=== PATIENT | female | born 1935 | race Caucasian/White ===

== ENCOUNTER 2017-09-01 08:21 | Day surgery (SDC) | payer MEDICARE ==
[~2017-09-01] VITALS: Ht 167.6 cm; Wt 77.0 kg
[~2017-09-01 08:21] MED LIST: LEVO100T5 PO; LISI5TAB7 PO; MULT-717 PO; OMEG-14 PO; VIT1TABL32 PO
[2017-09-01] MEDS ORDERED: LACTATED RINGERS 1,000 ML IV SCH (08:52)
[2017-09-01 09:10] VITALS: BP 158/83
[2017-09-01] MEDS ORDERED: MIDAZOLAM 1 MG/ML, 2ML ONE (10:33)
[2017-09-01] MEDS ORDERED: FENTANYL PF 100 MCG/2ML ONE ×2 (10:33→12:34)
[2017-09-01] MEDS ORDERED: DEXAMETHASONE 4 MG/ML, 1ML ONE (11:26)
[2017-09-01] MEDS ORDERED: CEFAZOLIN 1,000 MG ONE (11:26)
[2017-09-01] MEDS ORDERED: ONDANSETRON 2MG/ML, 2ML ONE (11:26)
[2017-09-01] MEDS ORDERED: PROPOFOL 10 MG/ML, 20ML ONE (11:26)
[2017-09-01] MEDS ORDERED: MITOMYCIN 40 MG in STERILE WATER 20 ML INTVESIC ONE (11:30)
[2017-09-01] MEDS ORDERED: HYDROcodone/APAP 7.5-325MG/15ML UDC PO PRN (12:30)
[2017-09-01] MEDS ORDERED: ACETAMINOPHEN 325 MG TABLET PO PRN (12:30)
[2017-09-01] MEDS ORDERED: PROMETHAZINE 25 MG/ML, 1ML IV PRN (12:30)
[2017-09-01] MEDS ORDERED: MIDAZOLAM 1 MG/ML, 2ML IV PRN (12:30)
[2017-09-01] MEDS ORDERED: HYDROmorphone 1 MG/ML, 1ML IV PRN (12:30)
[2017-09-01] MEDS ORDERED: LABETALOL 5MG/ML, 20ML IV PRN (12:30)
[2017-09-01] MEDS ORDERED: ALBUTEROL SULFATE 2.5 MG/3 ML NPPB PRN (12:30)
[2017-09-01] MEDS ORDERED: EPHEDRINE 50 MG/ML, 1ML IVPush PRN (12:30)
[2017-09-01] MEDS ORDERED: MEPERIDINE/PF 25MG/0.5ML IVPush PRN (12:30)
[2017-09-01] MEDS ORDERED: ONDANSETRON ODT 8 MG PO PRN (12:30)
[2017-09-01] MEDS ORDERED: hydrALAzine 20 MG/ML, 1ML IV PRN (12:30)
[2017-09-01] MEDS ORDERED: OXYcodone 5 MG/5 ML ORAL.SOL UDC ONE (12:34)
[2017-09-01] MEDS ORDERED: ACETAMINOPHEN 650 MG/20.3 ML UDC ONE (12:34)
[2017-09-01] MEDS: FENTANYL PF 100 MCG/2ML IV PRN ×2 (12:35→12:51)
[2017-09-01] MEDS: OXYcodone 5 MG/5 ML ORAL.SOL UDC PO PRN ×2 (12:37→13:42)
== END 2017-09-01 16:13 | disposition home or self-care (01) ==
LOC: OR 08:21
PROVIDERS: ATTEND Urology
DX: C67.9 Malignant neoplasm of bladder, unspecified (principal); I10 Essential (primary) hypertension; E78.00 Pure hypercholesterolemia, unspecified; E03.9 Hypothyroidism, unspecified; Z90.710 Acquired absence of both cervix and uterus; Z98.890 Other specified postprocedural states; Z72.89 Other problems related to lifestyle
CPT/HCPCS: 52240; 88305; J0690; J1100; J2250; J2405; J2704; J3010; J9280

== ENCOUNTER 2017-09-04 15:16 | Inpatient (IN) | payer MEDICARE ==
[~2017-09-04] VITALS: Ht 167.6 cm; Wt 81.1 kg
[2017-09-04 16:14] LABS: BASOPHILS # (AUTO) 0.03 x10^3/uL (0-0.1); BASOPHILS % (AUTO) 0 % (0-1); EOSINOPHILS # (AUTO) 0.09 x10^3/uL (0-0.4); EOSINOPHILS % (AUTO) 1 % (1-7); LYMPHOCYTES # (AUTO) 1.49 x10^3/uL (1-3.4); LYMPHOCYTES % (AUTO) 16 % (22-44); MD NO; MEAN CORPUSCULAR HEMOGLOBIN 29.6 pg (27.0-34.8); MEAN CORPUSCULAR HGB CONC 33.2 g/dL (32.4-35.8); MEAN CORPUSCULAR VOLUME 89.3 fL (80-100); MEAN PLATELET VOLUME 8.3 fL (7.4-10.4); MONOCYTES # (AUTO) 0.83 x10^3/uL (0.2-0.8); MONOCYTES % (AUTO) 9 % (2-9); NEUTROPHILS # (AUTO) 6.88 x10^3/uL (1.8-6.8); NEUTROPHILS % (AUTO) 74 % (42-75); PLATELET COUNT 231 x10^3/uL (130-400); RED BLOOD COUNT 4.42 x10^6/uL (3.82-5.3); RED CELL DISTRIBUTION WIDTH 14.1 % (9.6-15.2)
[2017-09-04 16:26] LABS: ALANINE AMINOTRANSFERASE 19 U/L (12-78); ALBUMIN 3.9 g/dL (3.4-5.0); ANION GAP 7 mmol/L (5-15); CALCIUM 9.4 mg/dL (8.5-10.1); CHLORIDE 103 mmol/L (98-107); CREATININE 1.17 mg/dL (0.55-1.02)
[2017-09-04 16:30] LABS: ALKALINE PHOSPHATASE 83 U/L (45-117); BILIRUBIN,TOTAL 0.4 mg/dL (0.2-1.0); TOTAL PROTEIN 7.6 g/dL (6.4-8.2); TROPONIN I 0.087 ng/mL (0.000-0.045)
[2017-09-04] MEDS ORDERED: ASPI-496 PO (18:59)
[2017-09-04] MEDS ORDERED: POLYETHYLENE GLYCOL 17 GM PACKET PO PRN (19:30)
[2017-09-04] MEDS ORDERED: NITROGLYCERIN 0.4 MG BOTTLE (25 TABS) SL PRN (19:30)
[2017-09-04] MEDS ORDERED: BISACODYL 10 MG SUPP PR PRN (19:30)
[2017-09-04] MEDS ORDERED: morphine SULFATE 10 MG/ML, 1ML IVPush PRN (19:30)
[2017-09-04] MEDS ORDERED: ONDANSETRON 2MG/ML, 2ML IVPush PRN (19:30)
[2017-09-04] MEDS: ACETAMINOPHEN 325 MG TABLET PO PRN (22:16)
[2017-09-04] MEDS: HEPARIN 5,000 UNITS/ML, 1ML SQ SCH (22:17)
[2017-09-04] MEDS: SODIUM CHLORIDE FLUSH 10ML SYR IVF SCH (22:17)
[2017-09-04 22:36] LABS: TROPONIN I 0.066 ng/mL (0.000-0.045)
[2017-09-05 00:04] VITALS: BP 151/81
[2017-09-05 01:27] VITALS: BP 119/70
[2017-09-05 04:32] LABS: BASOPHILS # (AUTO) 0.03 x10^3/uL (0-0.1); BASOPHILS % (AUTO) 0 % (0-1); EOSINOPHILS # (AUTO) 0.17 x10^3/uL (0-0.4); EOSINOPHILS % (AUTO) 2 % (1-7); LYMPHOCYTES # (AUTO) 1.27 x10^3/uL (1-3.4); LYMPHOCYTES % (AUTO) 17 % (22-44); MD NO; MEAN CORPUSCULAR HEMOGLOBIN 29.6 pg (27.0-34.8); MEAN CORPUSCULAR HGB CONC 33.4 g/dL (32.4-35.8); MEAN CORPUSCULAR VOLUME 88.7 fL (80-100); MEAN PLATELET VOLUME 8.5 fL (7.4-10.4); MONOCYTES # (AUTO) 0.66 x10^3/uL (0.2-0.8); MONOCYTES % (AUTO) 9 % (2-9); NEUTROPHILS # (AUTO) 5.45 x10^3/uL (1.8-6.8); NEUTROPHILS % (AUTO) 72 % (42-75); PLATELET COUNT 195 x10^3/uL (130-400); RED BLOOD COUNT 3.92 x10^6/uL (3.82-5.3); RED CELL DISTRIBUTION WIDTH 14.2 % (9.6-15.2)
[2017-09-05 04:43] LABS: ALBUMIN 3.1 g/dL (3.4-5.0); ANION GAP 4 mmol/L (5-15); CALCIUM 8.5 mg/dL (8.5-10.1); CHLORIDE 105 mmol/L (98-107)
[2017-09-05 04:49] LABS: ALANINE AMINOTRANSFERASE 16 U/L (12-78); ALKALINE PHOSPHATASE 66 U/L (45-117); BILIRUBIN,TOTAL 0.6 mg/dL (0.2-1.0); CHOL/HDL RATIO 1.8; CHOLESTEROL, TOTAL 144 mg/dL (140-239); CREATININE 1.05 mg/dL (0.55-1.02); HDL CHOL % 55 % (28-40); HDL CHOLESTEROL (DIRECT) 79 mg/dL (40-60); LDL CHOLESTEROL,CALCULATED 54 mg/dL (54-169); LDL/HDL RATIO 0.7 (0.5-3.0); TOTAL PROTEIN 6.4 g/dL (6.4-8.2); TRIGLYCERIDES 57 mg/dL (50-200); TROPONIN I 0.057 ng/mL (0.000-0.045); VLDL CHOLESTEROL 11 mg/dL (0-25)
[2017-09-05] MEDS: LEVOTHYROXINE 100 MCG TABLET PO SCH (06:00)
[2017-09-05] MEDS: HEPARIN 5,000 UNITS/ML, 1ML SQ SCH ×3 (06:00→21:51)
[2017-09-05 07:38] VITALS: BP 143/95
[2017-09-05] MEDS ORDERED: TEMPLATE NON-FORMULARY MED. (Vit A,C & E/Lutein/Minerals** (Ocuvite Tablet**) 1 TAB) PO SCH (09:00)
[2017-09-05] MEDS: SENNA/DOCUSATE TABLET PO SCH (09:00)
[2017-09-05] MEDS: OMEGA-3/FISH OIL CAPSULE PO SCH (09:00)
[2017-09-05] MEDS: MULTIVITAMINS/MINERALS TABLET PO SCH (09:00)
[2017-09-05] MEDS ORDERED: REGADENOSON 0.4 MG/5 ML SYRINGE ONE (09:08)
[2017-09-05] MEDS ORDERED: SODIUM CHLORIDE 0.9% 1,000 ML IV SCH (11:30)
[2017-09-05] MEDS: LISINOPRIL 5 MG TABLET PO SCH (11:40)
[2017-09-05 13:03] VITALS: BP 125/81
[2017-09-05] MEDS: SODIUM CHLORIDE FLUSH 10ML SYR IVF SCH ×2 (15:23→21:00)
[2017-09-05] MEDS: ASPIRIN 81 MG TABLET EC PO SCH (16:19)
[2017-09-05 19:40] VITALS: BP 108/72
[2017-09-05] MEDS: ACETAMINOPHEN 325 MG TABLET PO PRN (21:51)
[2017-09-06 01:07] VITALS: BP 128/71
[2017-09-06] MEDS: LEVOTHYROXINE 100 MCG TABLET PO SCH (06:13)
[2017-09-06] MEDS: HEPARIN 5,000 UNITS/ML, 1ML SQ SCH ×2 (06:13→14:30)
[2017-09-06 07:39] VITALS: BP 123/75
[2017-09-06] MEDS: SENNA/DOCUSATE TABLET PO SCH (07:48)
[2017-09-06] MEDS: ASPIRIN 81 MG TABLET EC PO SCH (07:48)
[2017-09-06] MEDS: LISINOPRIL 5 MG TABLET PO SCH (07:49)
[2017-09-06] MEDS: OMEGA-3/FISH OIL CAPSULE PO SCH (07:54)
[2017-09-06] MEDS: SODIUM CHLORIDE FLUSH 10ML SYR IVF SCH (07:55)
[2017-09-06] MEDS: MULTIVITAMINS/MINERALS TABLET PO SCH (07:56)
[2017-09-06 08:36] LABS: BASOPHILS # (AUTO) 0.01 x10^3/uL (0-0.1); BASOPHILS % (AUTO) 0 % (0-1); EOSINOPHILS # (AUTO) 0.15 x10^3/uL (0-0.4); EOSINOPHILS % (AUTO) 3 % (1-7); LYMPHOCYTES # (AUTO) 1.32 x10^3/uL (1-3.4); LYMPHOCYTES % (AUTO) 22 % (22-44); MD NO; MEAN CORPUSCULAR HEMOGLOBIN 29.3 pg (27.0-34.8); MEAN CORPUSCULAR HGB CONC 32.9 g/dL (32.4-35.8); MONOCYTES # (AUTO) 0.55 x10^3/uL (0.2-0.8); MONOCYTES % (AUTO) 9 % (2-9); NEUTROPHILS # (AUTO) 4.11 x10^3/uL (1.8-6.8); NEUTROPHILS % (AUTO) 67 % (42-75); PLATELET COUNT 206 x10^3/uL (130-400); RED BLOOD COUNT 3.89 x10^6/uL (3.82-5.3); RED CELL DISTRIBUTION WIDTH 14.1 % (9.6-15.2)
[2017-09-06 08:46] LABS: ALBUMIN 3.1 g/dL (3.4-5.0); ANION GAP 7 mmol/L (5-15); CALCIUM 8.4 mg/dL (8.5-10.1); CHLORIDE 102 mmol/L (98-107); CREATININE 0.97 mg/dL (0.55-1.02)
[2017-09-06 13:00] VITALS: BP 108/71
[2017-09-06 17:40] VITALS: BP 110/65
[2017-09-06 18:15] VITALS: BP 105/70
== END 2017-09-07 01:14 | disposition home or self-care (01) | DRG 280 ==
LOC: ED 19:14 → EDIP 19:15 → 5SO 20:10
PROVIDERS: ADMIT Internal Medicine; ATTEND Internal Medicine
DX: I21.4 Non-ST elevation (NSTEMI) myocardial infarction (principal); N17.0 Acute kidney failure with tubular necrosis; E44.0 Moderate protein-calorie malnutrition; I10 Essential (primary) hypertension; E03.9 Hypothyroidism, unspecified; I48.2 Chronic atrial fibrillation; E86.1 Hypovolemia; Z66 Do not resuscitate; Z82.0 Family history of epilepsy and other diseases of the nervous system; Z82.49 Family history of ischemic heart disease and other diseases of the circulatory system; Z90.49 Acquired absence of other specified parts of digestive tract; Z68.28 Body mass index [BMI] 28.0-28.9, adult
CPT/HCPCS: 36415; 71045; 71250; 78452; 80048; 80053; 80061; 82040; 83880; 84484; 85025; 93005; 93017; 93306; 96361; 96374; J1644; J2785; A9502; C9898; J2270; J7030

== ENCOUNTER → 2017-11-09 | Outpatient (CLI) | payer MEDICARE ==
[~2017-11-09] MED LIST changes: +ACET-1600 PO; +ASPI-496 PO; +DOCU-131 PO; +ELIQUIS; +IBUP-1221 PO
== END | disposition home or self-care (01) ==
LOC: PETCFH 10:12
PROVIDERS: ATTEND Urology
DX: C67.9 Malignant neoplasm of bladder, unspecified (principal)
CPT/HCPCS: 78306; A9503